=== PATIENT | female | born 1950 | race Caucasian/White ===

== ENCOUNTER 2018-07-14 14:31 | Inpatient (IN) | payer MEDICARE, OTHER ==
[~2018-07-14] VITALS: Ht 172.7 cm; Wt 96.7 kg
[2018-07-14 14:55] LABS: BASOPHILS # (AUTO) 0.1 X10'3 (0-0.2); BASOPHILS % (AUTO) 0.6 % (0-1); EOSINOPHILS # (AUTO) 0.1 X10'3 (0-0.9); EOSINOPHILS % (AUTO) 0.6 % (0-6); HEMATOCRIT 40.3 % (35.0-45.0); HEMOGLOBIN 13.4 g/dl (12.0-16.0); LYMPHOCYTES # (AUTO) 1.8 X10'3 (1.1-4.8); LYMPHOCYTES % (AUTO) 20.6 % (21-51); MEAN CORPUSCULAR HEMOGLOBIN 28.6 PG (27.0-31.0); MEAN CORPUSCULAR HGB CONC 33.3 % (33.0-36.5); MEAN CORPUSCULAR VOLUME 85.7 FL (78-98); MEAN PLATELET VOLUME 8.4 FL (7.4-10.4); MONOCYTES # (AUTO) 0.8 X10'3 (0-0.9); NEUTROPHILS # (AUTO) 6.1 X10'3 (1.8-7.7); NEUTROPHILS % (AUTO) 69.2 % (42-75); PLATELET COUNT 332 X10'3 (140-440); RED BLOOD COUNT 4.71 X10'6 (4.20-5.60); RED CELL DISTRIBUTION WIDTH 14.1 % (11.5-14.5); WHITE BLOOD COUNT 8.8 X10'3 (4.5-11.0)
[2018-07-14 15:09] LABS: PARTIAL THROMBOPLASTIN TIME 27 SECONDS (22-32)
[2018-07-14 15:10] LABS: ALANINE AMINOTRANSFERASE 34 U/L (12-78); ALKALINE PHOSPHATASE 124 IU/L (46-116); ANION GAP 13 (8-16); ASPARTATE AMINO TRANSFERASE 20 U/L (10-37); BILIRUBIN,TOTAL 0.4 MG/DL (0.1-1.0); BLOOD UREA NITROGEN 14 MG/DL (7-18); CALCIUM 9.1 MG/DL (8.5-10.1); CHLORIDE 100 MMOL/L (99-107); GLUCOSE 117 MG/DL (70-104); POTASSIUM 4.1 MMOL/L (3.5-5.1); SODIUM 139 MMOL/L (135-145); TOTAL CARBON DIOXIDE 26.4 MMOL/L (24-32); TOTAL PROTEIN 7.9 G/DL (6.4-8.2); eGFR 55 ML/MIN
[2018-07-14 15:13] LABS: TROPONIN I 0.07 NG/ML (0.0-0.05)
[2018-07-14] MEDS ORDERED: aspirin 81mg tab.chew PO ONE (15:30)
[2018-07-14] MEDS ORDERED: metoprolol tartrate 50mg tablet PO ONE (15:35)
--- NOTE | 2018-07-14 15:48 | NUR ---
STROKE ALERT CALLED OFF PER DR PEREIRA
[2018-07-14] MEDS ORDERED: THYR113. PO (15:52)
[2018-07-14] MEDS ORDERED: OMEG1CAP PO (15:55)
[2018-07-14] MEDS ORDERED: ERGO500014 PO (15:58)
[2018-07-14] MEDS ORDERED: ASCO1TAB (15:58)
[2018-07-14] MEDS ORDERED: normal saline 1000ml 1,000 ML IV SCH (16:00)
[2018-07-14] MEDS ORDERED: atorvastatin 20mg tablet PO SCH (16:00)
[2018-07-14] MEDS ORDERED: GUAI1TBM19 PO (16:00)
[2018-07-14] MEDS ORDERED: ondansetron/PF 4mg/2ml inj IV PRN (16:10)
[2018-07-14] MEDS ORDERED: magnesium 4gm in 100ml NS 100 ML IV PRN (16:10)
[2018-07-14] MEDS ORDERED: magnesium hydroxide 30ml (MOM) UD suspension PO PRN (16:10)
[2018-07-14] MEDS ORDERED: potassium Cl 40MEQ/NS 500ml 500 ML IV PRN ×2 (16:10)
[2018-07-14] MEDS ORDERED: mag hydrox/Alum hydrox/simeth 30ml oral suspension PO PRN (16:10)
[2018-07-14] MEDS ORDERED: potassium Cl 20 mEq SR tablet PO PRN ×2 (16:10)
[2018-07-14] MEDS ORDERED: magnesium Cl slow-release 64mg tablet PO PRN (16:10)
[2018-07-14] MEDS ORDERED: acetaminophen 325mg tablet PO PRN (16:10)
[2018-07-14 16:40] LABS: HEMOGLOBIN A1C 6.4 % (4.5-6.2)
[2018-07-14] MEDS: normal saline 1000ml 1,000 ML IV SCH (17:49)
[2018-07-14 17:53] VITALS: BP 168/91
--- NOTE | 2018-07-14 18:02 | NUR ---
Patient is refusing to take medications other than what she normally takes regardless of education given.
--- NOTE | 2018-07-14 18:08 | NUR ---
Problems reprioritized. Patient report given, questions answered & plan of care reviewed with Sheila DENSON.
[2018-07-14] MEDS: heparin, porcine 5000 units/ml vial SQ SCH (20:37)
[2018-07-14] MEDS: thyroid, pork 30mg tablet PO SCH (20:39)
[2018-07-14 22:00] VITALS: BP 154/85
[2018-07-15 02:00] VITALS: BP 163/86
[2018-07-15] MEDS: normal saline 1000ml 1,000 ML IV SCH ×2 (02:06→11:03)
[2018-07-15 06:00] VITALS: BP 143/83
--- NOTE | 2018-07-15 06:10 | NUR ---
Problems reprioritized. Patient report given, questions answered & plan of care reviewed with rosibel miller.
[2018-07-15 06:31] LABS: BASOPHILS # (AUTO) 0.1 X10'3 (0-0.2); EOSINOPHILS # (AUTO) 0.2 X10'3 (0-0.9); EOSINOPHILS % (AUTO) 2.6 % (0-6); HEMATOCRIT 37.2 % (35.0-45.0); HEMOGLOBIN 12.5 g/dl (12.0-16.0); LYMPHOCYTES # (AUTO) 1.9 X10'3 (1.1-4.8); LYMPHOCYTES % (AUTO) 32.3 % (21-51); MEAN CORPUSCULAR HEMOGLOBIN 28.9 PG (27.0-31.0); MEAN CORPUSCULAR HGB CONC 33.6 % (33.0-36.5); MEAN CORPUSCULAR VOLUME 86.2 FL (78-98); MEAN PLATELET VOLUME 9.2 FL (7.4-10.4); MONOCYTES # (AUTO) 0.6 X10'3 (0-0.9); MONOCYTES % (AUTO) 10.5 % (2-12); NEUTROPHILS # (AUTO) 3.2 X10'3 (1.8-7.7); NEUTROPHILS % (AUTO) 53.6 % (42-75); PLATELET COUNT 268 X10'3 (140-440); RED BLOOD COUNT 4.31 X10'6 (4.20-5.60); RED CELL DISTRIBUTION WIDTH 14.1 % (11.5-14.5)
[2018-07-15 06:55] LABS: ALANINE AMINOTRANSFERASE 35 U/L (12-78); ALBUMIN 3.5 G/DL (3.4-5.0); ALBUMIN/GLOBULIN RATIO 0.9 (1.1-1.5); ALKALINE PHOSPHATASE 109 IU/L (46-116); ANION GAP 10 (8-16); ASPARTATE AMINO TRANSFERASE 20 U/L (10-37); BILIRUBIN,TOTAL 0.3 MG/DL (0.1-1.0); BLOOD UREA NITROGEN 12 MG/DL (7-18); BUN/CREATININE RATIO 12.8 (6.6-38.0); CALCIUM 8.6 MG/DL (8.5-10.1); CHLORIDE 106 MMOL/L (99-107); CHOL/HDL RATIO 6.2 (0.00-4.99); CHOLESTEROL 278 MG/DL (0-200); CREATININE 0.94 MG/DL (0.40-0.90); GLUCOSE 106 MG/DL (70-104); HDL CHOLESTEROL 45 MG/DL (35-60); LDL CHOLESTEROL 200 MG/DL (50-100); MAGNESIUM 2.2 MG/DL (1.5-2.4); POTASSIUM 4.6 MMOL/L (3.5-5.1); SODIUM 143 MMOL/L (135-145); TOTAL CARBON DIOXIDE 26.7 MMOL/L (24-32); TOTAL PROTEIN 7.2 G/DL (6.4-8.2); TRIGLYCERIDES 294 MG/DL (20-135); eGFR 59 ML/MIN
[2018-07-15] MEDS: thyroid, pork 30mg tablet PO SCH (07:05)
[2018-07-15] MEDS: heparin, porcine 5000 units/ml vial SQ SCH (07:14)
[2018-07-15] MEDS ORDERED: aspirin 81mg tablet.DR PO SCH (08:00)
[2018-07-15] MEDS ORDERED: K and/or MAG REPLACEMENT MC SCH (08:00)
[2018-07-15 10:00] VITALS: BP 170/90
--- NOTE | 2018-07-15 10:37 | NUR ---
Nutrition consult: Pt hx T2DM A1C <7. Addendum: 07/15/18 at [address] Amended: Links added.
[2018-07-15] MEDS ORDERED: NIACIN PO (11:54)
[2018-07-15] MEDS ORDERED: ASPI-1071 PO (11:54)
[2018-07-15] MEDS ORDERED: AMLO5TAB4 PO (11:57)
[2018-07-15 14:00] VITALS: BP 156/77
[2018-07-15] MEDS ORDERED: LOSA50TA64 PO (14:04)
--- NOTE | 2018-07-15 14:09 | NUR ---
Discharge instructions given, IV removed, Tele box taken off of patient.
== END 2018-07-15 14:25 | disposition home or self-care (01) | DRG 66 ==
LOC: ER 14:32 → ED HOLD 16:00 → ORTHO 4S 17:05
PROVIDERS: ADMIT Internal Medicine; ATTEND Internal Medicine
DX: I63.9 Cerebral infarction, unspecified (principal); I10 Essential (primary) hypertension; E03.9 Hypothyroidism, unspecified; I16.0 Hypertensive urgency; G83.11 Monoplegia of lower limb affecting right dominant side; E66.9 Obesity, unspecified; E78.5 Hyperlipidemia, unspecified; R94.5 Abnormal results of liver function studies; R74.8 Abnormal levels of other serum enzymes; Z60.2 Problems related to living alone; W18.39XA Other fall on same level, initial encounter; I25.2 Old myocardial infarction; Z79.899 Other long term (current) drug therapy; Z95.5 Presence of coronary angioplasty implant and graft; Z91.013 Allergy to seafood; Z88.8 Allergy status to other drugs, medicaments and biological substances; Z91.048 Other nonmedicinal substance allergy status; Z68.32 Body mass index [BMI] 32.0-32.9, adult; Y92.89 Other specified places as the place of occurrence of the external cause; Y93.89 Activity, other specified; Y99.8 Other external cause status
CPT/HCPCS: 36415; 70450; 70544; 70551; 71045; 80053; 80061; 82948; 83036; 83735; 84439; 84443; 84484; 85025; 85610; 85730; 87070; 92616; 93005; 93306; 93880; 97161; 97530; 99285; G0378; J1644; J7030

== ENCOUNTER 2018-07-25 17:23 | Inpatient (IN) | payer MEDICARE, OTHER ==
[2018-07-25] VITALS (8 sets, daily range): BP systolic 147–160; BP diastolic 83–90
[~2018-07-25] VITALS: Ht 170.2 cm; Wt 96.1 kg
[~2018-07-25 17:23] MED LIST: ASCO1TAB; ASPI-1071 PO; ERGO500014 PO; LOSA50TA64 PO; NIACIN PO; OMEG1CAP PO; THYR113. PO
--- NOTE | 2018-07-25 17:45 | NUR ---
STEMI ALERT CALLED, IV STARTED X2, LABS DRAWN
[2018-07-25] MEDS ORDERED: normal saline 1000ML IV soln IVB ONE (17:50)
[2018-07-25] MEDS ORDERED: heparin 10,000 units/1 ML INJ IV ONE (17:50)
[2018-07-25] MEDS ORDERED: nitroGLYCERIN-Tridil 50MG/D5W 250 ML IV PRN (17:50)
[2018-07-25] MEDS ORDERED: heparin 25,000 UNIT/250ml bag 250 ML IV SCH (17:50)
[2018-07-25] MEDS ORDERED: LOSA50TA3 PO (17:53)
[2018-07-25 17:54] LABS: BASOPHILS % (AUTO) 0.3 % (0-1); EOSINOPHILS # (AUTO) 0.1 X10'3 (0-0.9); EOSINOPHILS % (AUTO) 0.7 % (0-6); HEMATOCRIT 35.1 % (35.0-45.0); LYMPHOCYTES # (AUTO) 0.8 X10'3 (1.1-4.8); LYMPHOCYTES % (AUTO) 11.6 % (21-51); MEAN CORPUSCULAR HEMOGLOBIN 29.1 PG (27.0-31.0); MEAN CORPUSCULAR HGB CONC 34.1 % (33.0-36.5); MEAN CORPUSCULAR VOLUME 85.5 FL (78-98); MEAN PLATELET VOLUME 9.3 FL (7.4-10.4); MONOCYTES # (AUTO) 0.5 X10'3 (0-0.9); MONOCYTES % (AUTO) 6.8 % (2-12); NEUTROPHILS # (AUTO) 5.8 X10'3 (1.8-7.7); NEUTROPHILS % (AUTO) 80.6 % (42-75); PLATELET COUNT 280 X10'3 (140-440); RED BLOOD COUNT 4.11 X10'6 (4.20-5.60); RED CELL DISTRIBUTION WIDTH 14.5 % (11.5-14.5); WHITE BLOOD COUNT 7.2 X10'3 (4.5-11.0)
[2018-07-25] MEDS ORDERED: midazolam 2 mg/2 ml injection ONE (17:59)
[2018-07-25] MEDS ORDERED: iohexol 350 MG/1 ML 200ml bottle ONE (17:59)
[2018-07-25] MEDS ORDERED: LIDOcaine 1% (10mg/ml)w/preservative injection 20ml MDV ONE (17:59)
[2018-07-25] MEDS ORDERED: heparin 1,000unit/ml 10ml vial 10 ML ONE (17:59)
[2018-07-25] MEDS ORDERED: fentaNYL/PF 50MCG/1 ML 2ML syringe ONE (17:59)
[2018-07-25] MEDS ORDERED: hydrocortisone sod succ/PF 100mg/2ml inj. ONE (18:01)
[2018-07-25] MEDS ORDERED: diphenhydrAMINE 50 mg/ml inj ONE (18:03)
--- NOTE | 2018-07-25 18:12 | NUR ---
OUTSIDE EVENT SALES SPECIALIST NURSE HERE, HEPARIN AND NITRO GTTS STARTED, PATIENT HAD TAKEN ASPIRIN AND NITRO WITH RELIEF PRIOR TO ARRIVAL TO THE HOSPITAL
[2018-07-25 19:01] LABS: ALANINE AMINOTRANSFERASE 38 U/L (12-78); ALBUMIN 3.4 G/DL (3.4-5.0); ALKALINE PHOSPHATASE 103 IU/L (46-116); ANION GAP 13 (8-16); ASPARTATE AMINO TRANSFERASE 26 U/L (10-37); BILIRUBIN,TOTAL 0.3 MG/DL (0.1-1.0); BLOOD UREA NITROGEN 22 MG/DL (7-18); BUN/CREATININE RATIO 21.4 (6.6-38.0); CALCIUM 8.9 MG/DL (8.5-10.1); CHLORIDE 104 MMOL/L (99-107); CREATININE 1.03 MG/DL (0.40-0.90); GLUCOSE 140 MG/DL (70-104); POTASSIUM 3.5 MMOL/L (3.5-5.1); SODIUM 139 MMOL/L (135-145); TOTAL CARBON DIOXIDE 21.7 MMOL/L (24-32); TOTAL PROTEIN 6.9 G/DL (6.4-8.2); eGFR 53 ML/MIN
[2018-07-25] MEDS ORDERED: HYDROcodone/acetaminophen 5mg/325mg tablet PO PRN (20:00)
[2018-07-25] MEDS ORDERED: ondansetron/PF 4mg/2ml inj IV PRN ×2 (20:00→20:35)
[2018-07-25] MEDS ORDERED: proCHLORperazine 10 MG/2 ml inj IV PRN (20:00)
[2018-07-25] MEDS ORDERED: HYDROcodone/acetaminophen 10/325mg tab PO PRN (20:00)
--- NOTE | 2018-07-25 20:02 | NUR ---
COSMETIC SURGEON REDRAWING PTS PTT LAB. 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 PT GROIN SOFT NO BLEEDING, STRONG PEDAL PULSES CURRENTLY SPEAKING WITH DR ESTES. PT FRIEND AT BEDSIDE
[2018-07-25] MEDS ORDERED: normal saline 1000ml 1,000 ML IV SCH (20:31)
[2018-07-25] MEDS ORDERED: magnesium hydroxide 30ml (MOM) UD suspension PO PRN (20:35)
[2018-07-25] MEDS ORDERED: acetaminophen 325mg tablet PO PRN (20:35)
[2018-07-25] MEDS ORDERED: mag hydrox/Alum hydrox/simeth 30ml oral suspension PO PRN (20:35)
[2018-07-25 20:59] LABS: PROTHROMBIN TIME 10.5 SECONDS (9.0-12.0)
[2018-07-25] MEDS: heparin 10,000 units/1 ML INJ IV PRN (21:27)
[2018-07-25] MEDS: heparin 25,000 UNIT/250ml bag 250 ML IV SCH (21:30)
[2018-07-25] MEDS: temazepam 15mg capsule PO PRN (22:41)
[2018-07-25] MEDS: losartan 25mg tablet PO SCH (22:41)
[2018-07-25] MEDS: OXAZEpam 15mg capsule PO PRN (22:41)
[2018-07-26] VITALS (10 sets, daily range): BP systolic 119–157; BP diastolic 58–97
--- NOTE | 2018-07-26 06:19 | NUR ---
Problems reprioritized. Patient report given, questions answered & plan of care reviewed with BECKY DENSON.
--- NOTE | 2018-07-26 06:39 | NUR ---
Patient in room PCU 3016. I have received report from JARETT Santos and had the opportunity to ask questions and assume patient care.
[2018-07-26] MEDS: losartan 25mg tablet PO SCH ×2 (08:46→20:42)
--- NOTE | 2018-07-26 10:44 | NUR ---
Nutrition consult: Per [facility] pt borderline T2DM, controlled by diet. Patient's current A1c 6.4, DM ed not warranted at this time. Will continue to follow. Addendum: 07/26/18 at [address] Amended: Links added.
[2018-07-26 11:12] LABS: ALANINE AMINOTRANSFERASE 32 U/L (12-78); ALBUMIN 3.1 G/DL (3.4-5.0); ALBUMIN/GLOBULIN RATIO 0.9 (1.1-1.5); ALKALINE PHOSPHATASE 92 IU/L (46-116); ANION GAP 11 (8-16); ASPARTATE AMINO TRANSFERASE 45 U/L (10-37); BILIRUBIN,TOTAL 0.2 MG/DL (0.1-1.0); BLOOD UREA NITROGEN 14 MG/DL (7-18); BUN/CREATININE RATIO 15.7 (6.6-38.0); CALCIUM 8.3 MG/DL (8.5-10.1); CHLORIDE 105 MMOL/L (99-107); CHOL/HDL RATIO 4.7 (0.00-4.99); CHOLESTEROL 235 MG/DL (0-200); CREATININE 0.89 MG/DL (0.40-0.90); GLUCOSE 148 MG/DL (70-104); HDL CHOLESTEROL 50 MG/DL (35-60); LDL CHOLESTEROL 163 MG/DL (50-100); SODIUM 141 MMOL/L (135-145); TOTAL CARBON DIOXIDE 25.5 MMOL/L (24-32); TOTAL PROTEIN 6.5 G/DL (6.4-8.2); TRIGLYCERIDES 150 MG/DL (20-135); eGFR 63 ML/MIN
[2018-07-26] MEDS ORDERED: potassium Cl 20 mEq SR tablet PO PRN (11:35)
[2018-07-26] MEDS ORDERED: magnesium Cl slow-release 64mg tablet PO PRN (11:35)
[2018-07-26] MEDS ORDERED: potassium Cl 40MEQ/NS 500ml 500 ML IV PRN ×2 (11:35)
[2018-07-26] MEDS ORDERED: magnesium 4gm in 100ml NS 100 ML IV PRN (11:35)
[2018-07-26 12:26] LABS: BASOPHILS % (AUTO) 0.3 % (0-1); EOSINOPHILS # (AUTO) 0.1 X10'3 (0-0.9); EOSINOPHILS % (AUTO) 1.4 % (0-6); HEMATOCRIT 31.6 % (35.0-45.0); HEMOGLOBIN 10.7 g/dl (12.0-16.0); LYMPHOCYTES # (AUTO) 1.7 X10'3 (1.1-4.8); LYMPHOCYTES % (AUTO) 24.2 % (21-51); MEAN CORPUSCULAR HEMOGLOBIN 29.1 PG (27.0-31.0); MEAN CORPUSCULAR HGB CONC 33.7 % (33.0-36.5); MEAN CORPUSCULAR VOLUME 86.3 FL (78-98); MEAN PLATELET VOLUME 9.4 FL (7.4-10.4); MONOCYTES # (AUTO) 0.7 X10'3 (0-0.9); MONOCYTES % (AUTO) 9.2 % (2-12); NEUTROPHILS # (AUTO) 4.6 X10'3 (1.8-7.7); NEUTROPHILS % (AUTO) 64.9 % (42-75); PLATELET COUNT 256 X10'3 (140-440); RED BLOOD COUNT 3.67 X10'6 (4.20-5.60); RED CELL DISTRIBUTION WIDTH 14.3 % (11.5-14.5); WHITE BLOOD COUNT 7.2 X10'3 (4.5-11.0)
--- NOTE | 2018-07-26 16:35 | NUR ---
PAGER ID: [phone] MESSAGE: [id number]: MUNDO VELASQUEZ - wanting to know the care plan? pt doesn't want CABG, still on heparin gtt. thank you Nurse Lindsey nelson [phone]
--- NOTE | 2018-07-26 17:00 | NUR ---
Problems reprioritized. Patient report given, questions answered & plan of care reviewed with JARETT Portillo.
--- NOTE | 2018-07-26 17:01 | NUR ---
Patient in room MED 312. I have received report from JARETT PENA and had the opportunity to ask questions and assume patient care.
--- NOTE | 2018-07-26 17:15 | NUR ---
PATIENT ARRIIVE TO ACCE UNIT ROOM 312 VIA BED IN STABLE CONDITION. HEPARIN GTT INFUSING ORDERED. PATIENT ABLE TO WALK FROM BED TO NEW BED IN ROOM. PATIENT ATTACHED TO MONITOR AT BEDSIDE VSS BP 143/88, HR 76, O2 SAT 97% RA, RR 20, DENIES PAIN AT THIS TIME. CARDIAC PTT 41, WILL FOLLOW PROTOCOL AND GIVE 4000 UNIT HEPARIN BOLUS, AND INCREASE THE HEPARIN GTT RATE TO 1200 UNITS / HR. DINNER GIVEN TO PATIENT. PATIENT SITTING ON EDGE OF BED EATING WILL CONTINUE TO MONITOR AT THIS TIME
[2018-07-26] MEDS: heparin 10,000 units/1 ML INJ IV PRN (17:39)
[2018-07-26] MEDS: heparin 25,000 UNIT/250ml bag 250 ML IV SCH (17:42)
--- NOTE | 2018-07-26 18:04 | NUR ---
[place] documentation: I have reviewed and agree with all interventions, assessments performed and documented by JARETT Agosto. [employer] Medication Administration: For this medication-pass time frame, all medication were reviewed, dispensed, administered and documented per hospital policy by JARETT Agosto.
--- NOTE | 2018-07-26 18:15 | NUR ---
Patient in room MED 312. I have received report from Lindsey and had the opportunity to ask questions and assume patient care.
[2018-07-26] MEDS: potassium Cl 20 mEq SR tablet PO PRN (20:41)
--- NOTE | 2018-07-26 22:00 | NUR ---
Patient ambulated 1000 feet without assistance, respirations 20, SpO2 95, HR 93. Tolerated ambulation well.
[2018-07-26] MEDS: OXAZEpam 15mg capsule PO PRN (23:07)
[2018-07-26] MEDS: temazepam 15mg capsule PO PRN (23:07)
[2018-07-27 02:00] VITALS: BP 122/61
[2018-07-27] MEDS: potassium Cl 20 mEq SR tablet PO PRN (03:34)
[2018-07-27 06:00] VITALS: BP 142/82
--- NOTE | 2018-07-27 06:03 | NUR ---
Patient in room MED 312. I have received report from JARETT BHATT and had the opportunity to ask questions and assume patient care. THIS MORNING PATIENT WOULD LIKE TO SPEAK WITH A BOLT THREADER. WILL INFORM DR. VERA
[2018-07-27 06:27] LABS: BASOPHILS % (AUTO) 0.3 % (0-1); EOSINOPHILS # (AUTO) 0.2 X10'3 (0-0.9); HEMATOCRIT 34.8 % (35.0-45.0); HEMOGLOBIN 11.9 g/dl (12.0-16.0); LYMPHOCYTES # (AUTO) 1.7 X10'3 (1.1-4.8); LYMPHOCYTES % (AUTO) 21.8 % (21-51); MEAN CORPUSCULAR HEMOGLOBIN 29.3 PG (27.0-31.0); MEAN CORPUSCULAR VOLUME 86.1 FL (78-98); MEAN PLATELET VOLUME 9.2 FL (7.4-10.4); MONOCYTES # (AUTO) 0.8 X10'3 (0-0.9); MONOCYTES % (AUTO) 10.6 % (2-12); NEUTROPHILS # (AUTO) 5.1 X10'3 (1.8-7.7); NEUTROPHILS % (AUTO) 65.3 % (42-75); PLATELET COUNT 220 X10'3 (140-440); RED BLOOD COUNT 4.05 X10'6 (4.20-5.60); RED CELL DISTRIBUTION WIDTH 14.5 % (11.5-14.5); WHITE BLOOD COUNT 7.8 X10'3 (4.5-11.0)
[2018-07-27 06:43] LABS: ALANINE AMINOTRANSFERASE 35 U/L (12-78); ALBUMIN 3.3 G/DL (3.4-5.0); ALBUMIN/GLOBULIN RATIO 0.9 (1.1-1.5); ALKALINE PHOSPHATASE 101 IU/L (46-116); ANION GAP 12 (8-16); ASPARTATE AMINO TRANSFERASE 38 U/L (10-37); BILIRUBIN,TOTAL 0.3 MG/DL (0.1-1.0); BLOOD UREA NITROGEN 14 MG/DL (7-18); BUN/CREATININE RATIO 16.5 (6.6-38.0); CALCIUM 8.6 MG/DL (8.5-10.1); CHLORIDE 107 MMOL/L (99-107); CREATININE 0.85 MG/DL (0.40-0.90); GLUCOSE 89 MG/DL (70-104); POTASSIUM 4.3 MMOL/L (3.5-5.1); SODIUM 141 MMOL/L (135-145); TOTAL CARBON DIOXIDE 22.3 MMOL/L (24-32); eGFR 67 ML/MIN
--- NOTE | 2018-07-27 07:28 | NUR ---
CARDIAC PTT 49, WITHIN THERAPEUTIC RANGE. NO CHANGE IN RATE / NO BOLUS NEEDED. WILL CONTINUE TO MONITOR. NEXT CARDIAC PTT @ 1300
[2018-07-27] MEDS: losartan 25mg tablet PO SCH (07:59)
[2018-07-27 11:00] VITALS: BP 157/90
--- NOTE | 2018-07-27 12:00 | NUR ---
DR. VERA AT BEDSIDE. NEW ORDERS RECEIVED FOR DISCHARGE. 1300: PHYSICAL THERAPY UNABLE TO WORK WITH PATIENT. RN TO WORK WITH PATIENT ON STAIRS. 1330: PATIENT ABLE TO WALK UP / DOWN 2 FLIGHTS ON STAIRS WITHOUT DIFFICULTY. CASE MANAGEMENT PROVIDED RESOURCES TO PATIENT FOR FINANCIAL / HOUSING ASSISTANCE. PATIENT INFORMED TO CALL THE HOSPITAL SUNDAY AND SPEAK WITH [employer]OCK[employer] WORKER FOR CLARIFICATION OF AVAILABLE RESOURCES.
[2018-07-27] MEDS ORDERED: TEMA15CA PO (12:37)
[2018-07-27] MEDS ORDERED: LOSA50TA3 PO (12:37)
[2018-07-27] MEDS ORDERED: NIACIN PO (12:37)
[2018-07-27] MEDS ORDERED: ASPI-1071 PO (12:37)
[2018-07-27] MEDS ORDERED: NIT10P TD (12:42)
[2018-07-27] MEDS ORDERED: NITR0.4T51 SL (12:42)
--- NOTE | 2018-07-27 14:13 | NUR ---
PATIENT DISCHARGED. VSS, PIV REMOVED WITH TIP INTACT AND HEMOSTASIS ACHIEVED. DISCHARGE MEDICATION PRESCRIPTIONS GIVEN TO PATIENT WITH INFORMATION ON WHEN NEXT DOSE IS DUE. PATIENT INFORMED THAT SHE IS PART OF A MEDICATION SERVICE AND WILL GET THEM FILLED. PATIENT UNDERSTANDS TO CALL DR. CHUNG'S OFFICE ON SUNDAY TO SET UP FOLLOW-UP APPOINTMENT, PHONE NUMBER GIVEN TO PATIENT. ALL QUESTIONS AND CONCERNS ADDRESSED AT THIS TIME. PATIENT DRESSED SELF AND WAITING FOR RIDE.
== END 2018-07-27 14:27 | disposition home or self-care (01) | DRG 281 ==
LOC: ER 17:23 → PCU 3S 19:50 → MED 3N 07-26 17:15
PROVIDERS: ADMIT Internal Medicine; ATTEND Internal Medicine
PROC: 4A023N7 Measurement of Cardiac Sampling and Pressure, Left Heart, Percutaneous Approach (ICD-10-PCS; principal; 2018-07-25)
PROC: B2111ZZ Fluoroscopy of Multiple Coronary Arteries using Low Osmolar Contrast (ICD-10-PCS; 2018-07-25)
PROC: B2151ZZ Fluoroscopy of Left Heart using Low Osmolar Contrast (ICD-10-PCS; 2018-07-25)
DX: I21.4 Non-ST elevation (NSTEMI) myocardial infarction (principal); N17.9 Acute kidney failure, unspecified; I25.5 Ischemic cardiomyopathy; E03.9 Hypothyroidism, unspecified; E11.9 Type 2 diabetes mellitus without complications; E78.5 Hyperlipidemia, unspecified; F32.9 Major depressive disorder, single episode, unspecified; I10 Essential (primary) hypertension; I25.119 Atherosclerotic heart disease of native coronary artery with unspecified angina pectoris; E87.6 Hypokalemia; Z66 Do not resuscitate; I25.2 Old myocardial infarction; Z91.14 Patient's other noncompliance with medication regimen; Z98.61 Coronary angioplasty status; Z88.8 Allergy status to other drugs, medicaments and biological substances; Z86.73 Personal history of transient ischemic attack (TIA), and cerebral infarction without residual deficits; Z82.49 Family history of ischemic heart disease and other diseases of the circulatory system
CPT/HCPCS: 36415; 71045; 80053; 80061; 84484; 85025; 85610; 85730; 87070; 93005; 93458; 96361; 96374; 96375; 99152; 99153; 99285; A4620; A6257; C1760; C1769; G0378; J1200; J1644; J1720; J2001; J2250; J3010; J3490; J7030; Q9967

== ENCOUNTER 2022-01-06 22:10 | Emergency (ER) | payer BC, MEDICAID ==
[~2022-01-06] VITALS: Ht 170.2 cm; Wt 84.1 kg
[~2022-01-06 22:10] MED LIST changes: +LOSA50TA3 PO; -LOSA50TA64 PO; -OMEG1CAP PO; +OMEG1CAP61 PO; +TEMA15CA PO
[2022-01-06 22:23] VITALS: BP 127/76
== END 2022-01-07 00:56 | disposition left against medical advice (07) ==
LOC: ER 22:11
DX: R09.89 Other specified symptoms and signs involving the circulatory and respiratory systems (principal); Z53.21 Procedure and treatment not carried out due to patient leaving prior to being seen by health care provider